=== PATIENT | male | born 1995 | race Caucasian/White ===

== ENCOUNTER → 2016-12-06 | Outpatient (CLI) | payer BC ==
--- NOTE | 2016-12-06 15:59 | RAD ---
Scrotal ultrasound, 12/06/2016: History: Right-sided lump The right testicle measures 2.7 x 2.6 x 2.2 cm while the left testicle measures 3.2 x 2.6 x 1.9 cm. There is symmetric blood flow within the testicles. A tiny 3 mm cyst is noted along the margin of the right testicle. The testicles are otherwise unremarkable. No epididymal abnormality is seen. A small amount of fluid is noted in the left scrotal sac. IMPRESSION: 1. Tiny right testicular cyst. 2. Small left hydrocele.
== END | disposition home or self-care (01) ==
LOC: US 14:43
PROVIDERS: ATTEND Family Medicine
DX: N44.2 Benign cyst of testis (principal); N43.3 Hydrocele, unspecified
CPT/HCPCS: 76870

== ENCOUNTER 2018-05-23 19:18 | Emergency (ER) | payer BC ==
[~2018-05-23] VITALS: Ht 188 cm; Wt 68.0 kg
[2018-05-23 19:25] VITALS: BP 136/78
[2018-05-23] MEDS ORDERED: IBUP800T19 PO (19:56)
[2018-05-23] MEDS ORDERED: HYDR-971 PO (19:56)
--- NOTE | 2018-05-23 19:56 | RAD ---
EXAM: Left ankle, 3 views. HISTORY: Trauma. COMPARISON: None. FINDINGS: 3 views left ankle are obtained. There is no fracture, dislocation or subluxation. There is a tiny corticated ossicle inferior to the lateral malleolus, consistent with a chronic avulsion fracture fragment. There is lateral predominant ankle soft tissue swelling. No osteochondral lesion is seen. IMPRESSION: 1. Chronic appearing tiny avulsion fracture fragment from the lateral malleolus. No convincing acute fracture is seen. 2. Lateral predominant ankle soft tissue swelling. Electronically signed by: Celine Palmer MD (05/23/2018 7:53 PM) [facility]
--- NOTE | 2018-05-23 19:59 | PHYS DOC ---
Adult General Chief Complaint Chief Complaint joan HPI HPI 23 years old male presented emergency department with ankle swollen tender after he stepped on a stone no restriction of movement for the past 48 hours Review of Systems Review of Systems Constitutional: Denies fever or chills [] Eyes: Denies change in visual acuity, redness, or eye pain [] HENT: Denies nasal congestion or sore throat [] Respiratory: Denies cough or shortness of breath [] Cardiovascular: No additional information not addressed in HPI [] GI: Denies abdominal pain, nausea, vomiting, bloody stools or diarrhea [] : Denies dysuria or hematuria [] Musculoskeletal: Denies back pain Integument: Denies rash or skin lesions [] Neurologic: Denies headache, focal weakness or sensory changes [] Endocrine: Denies polyuria or polydipsia [] All other systems were reviewed and found to be within normal limits, except as documented in this note. Current Medications Current Medications Current Medications Medications (Trade) Dose Ordered Sig/Evelyn Start Time Stop Time Status Last Admin Dose Admin Ibuprofen (Motrin) 600 mg 1X ONCE 05/23/18 20:15 05/23/18 20:16 Allergies Allergies Allergies Coded Allergies Type Severity Reaction Last Updated Verified No Known Drug Allergies 02/18/15 No Physical Exam Physical Exam Constitutional: Well developed, well nourished, no acute distress, non-toxic appearance. [] HENT: Normocephalic, atraumatic, bilateral external ears normal, oropharynx moist, no oral exudates, nose normal. [] Eyes: PERRLA, EOMI, conjunctiva normal, no discharge. [] Neck: Normal range of motion, no tenderness, supple, no stridor. [] Cardiovascular:Heart rate regular rhythm, no murmur [] Lungs & Thorax: Bilateral breath sounds clear to auscultation [] Abdomen: Bowel sounds normal, soft, no tenderness, no masses, no pulsatile masses. [] Skin: Warm, dry, no erythema, no rash. [] Back: No tenderness, no CVA tenderness. [] Extremities: Left ankle swollen tender no restriction of movement Neurologic: Alert and oriented X 3, normal motor function, normal sensory function, no focal deficits noted. [] Psychologic: Affect normal, judgement normal, mood normal. [] Current Patient Data Vital Signs Vital Signs Date Time Temp Pulse Resp B/P (MAP) Pulse Ox O2 Delivery O2 Flow Rate FiO2 05/23/18 19:25 98.6 96 20 97 Room Air EKG EKG [] Radiology/Procedures Radiology/Procedures [] Course & Med Decision Making Course & Med Decision Making Pertinent Labs and Imaging studies reviewed. (See chart for details) [] Final Impression Final Impression Patient advised to keep the splint on use crutches not to put any pressure on on his foot advised to follow-up with orthopedic surgeon and repeat x-ray in 1 week to rule out any fracture[] Problems: (1) Left ankle sprain Qualifiers: Qualified Codes: S93.402A - Sprain of unspecified ligament of left ankle, initial encounter Dragon Disclaimer Dragon Disclaimer This electronic medical record was generated, in whole or in part, using a voice recognition dictation system. SID KIRAN MD May 23, 2018 19:59
[2018-05-23] MEDS ORDERED: IBUPROFEN 600 MG TABLET. PO ONE (20:15)
== END 2018-05-23 20:40 | disposition home or self-care (01) ==
LOC: ER 19:18
DX: S93.492A Sprain of other ligament of left ankle, initial encounter (principal); W22.8XXA Striking against or struck by other objects, initial encounter; Y93.89 Activity, other specified; Y92.89 Other specified places as the place of occurrence of the external cause; Y99.8 Other external cause status
CPT/HCPCS: 29515; 73610; 99284